=== PATIENT | male | born 1960 | race Caucasian/White ===

== ENCOUNTER → 2017-08-09 | Outpatient (CLI) | payer OTHER | LOC: CIMAGING 16:51 | PROVIDERS: ATTEND Internal Medicine | DX: N50.3 Cyst of epididymis (principal); N44.2 Benign cyst of testis | CPT/HCPCS: 76870-PO ==

== ENCOUNTER → 2018-02-08 | Outpatient (CLI) | payer OTHER | LOC: FIMAGING 07:21 | PROVIDERS: ATTEND Urology | DX: N50.3 Cyst of epididymis (principal); N44.2 Benign cyst of testis; N50.89 Other specified disorders of the male genital organs ==